=== PATIENT | male | born 2005 | race Caucasian/White ===

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

== ENCOUNTER 2024-06-13 13:22 | Emergency (ER) | payer OTHER ==
[~2024-06-13] VITALS: Ht 198.1 cm; Wt 115.5 kg
[2024-06-13] MEDS ORDERED: COQ150CH PO (13:31)
[2024-06-13] MEDS ORDERED: NAPR-837 PO (15:22)
[2024-06-13 15:27] VITALS: BP 143/92; TEMP 97.6; O2SAT 98
== END 2024-06-13 15:29 | disposition home or self-care (01) ==
LOC: M ED 13:22
DX: M54.2 Cervicalgia (principal); M25.532 Pain in left wrist; Z79.899 Other long term (current) drug therapy